=== PATIENT | female | born 1960 | race African-American/Black ===

== ENCOUNTER 2025-01-01 15:50 | Inpatient (IN) | payer MEDICARE, MEDICAID ==
[~2025-01-01] VITALS: Ht 165.1 cm; Wt 73.6 kg
[2025-01-01] VITALS (25 sets, daily range): BP systolic 134–209; BP diastolic 70–122; PULSE 61–94; RESP 19–33; TEMP 35.6–36.6404; O2SAT 98–100
[2025-01-01] MEDS: IPRATROPIUM/ALBUTEROL 0.5-3(2.5)MG/3ML NEB HHN SCH (08:45)
[2025-01-01] MEDS: NOREPINEPHRINE 8MG/250ML PMX 250 ML IV ONE ×2 (16:15)
[2025-01-01 16:40] LABS: BASOPHILS % 0.9 % (0.0-2.0); EOSINOPHILS % 1.0 % (0.0-5.0); HEMATOCRIT. 36.3 % (36.0-48.0); HEMOGLOBIN. 11.4 g/dL (12.0-16.0); LYMPHOCYTES % 27.4 % (20.0-50.0); MEAN PLATELET VOLUME 8.4 fl (7.4-10.4); MONOCYTES % 3.5 % (2.0-8.0); NEUTROPHILS % 67.2 % (40.0-76.0); PLATELET 110 x1000/uL (130-400); RED BLOOD CELL COUNT 3.81 mill/uL (4.2-5.4); RED CELL DISTRIBUTION WIDTH 17.3 % (11.6-14.6)
[2025-01-01] MEDS: PIPERACILLIN/TAZO 3.375G/50ML 50 ML IV ONE (16:42)
[2025-01-01] MEDS: SODIUM CHLORIDE 0.9% (SEPSIS BOLUS) IV ONE (16:43)
[2025-01-01 16:54] LABS: UREA NITROGEN BLOOD 18 mg/dL (9-23)
[2025-01-01 16:56] LABS: ASPARTATE AMINOTRANSFERASE 72 IU/L (<34); BILIRUBIN DIRECT < 0.1 mg/dL (<=3.0); BILIRUBIN TOTAL < 0.2 mg/dL (0.1-1.0); PROTEIN TOTAL 5.6 g/dL (6.0-8.3)
[2025-01-01 16:58] LABS: BG BASE EXCESS -6.2 mmol/L (-2.0-3.0); BG CARBOXYHEMOGLOBIN 0.9 % (0.5-1.5); BG DEOXYHEMOGLOBIN 0.4 % (0.0-5.0); BG FRACTION INSPIRED OXYGEN 100; BG HCO3 ACT 18.5 mmol/L (21.0-28.0); BG METHEMOGLOBIN 0.3 % (0.5-1.5); BG OXYGEN SATURATION 99.6 % (94.0-98.0); BG OXYHEMOGLOBIN 98.4 % (94.0-98.0); BG PCO2 33.8 mmHg (32.0-45.0); BG PEEP (cmH2O) 5.0 cmH2O; BG PH 7.357 (7.350-7.450); BG PO2 455.8 mmHg (83.0-108.0); BG SAMPLE SITE RIGHT BRACHIAL; BG TIDAL VOLUME(mL) 500.0 mL; BG TOTAL HEMOGLOBIN 11.0 g/dL (12.0-16.0); BG VENT MODE VENT - AC; BG VENT RATE 20.0 set
[2025-01-01 16:58] LABS: INR 1.2
[2025-01-01 17:05] LABS: TROPONIN I HIGH SENSITIVITY 74 ng/L (3.0-34)
[2025-01-01 17:06] LABS: CREATININE 5.2 mg/dL (0.6-1.0)
[2025-01-01] MEDS: VANCOMYCIN 1G PREMIX 200 ML IV ONE (17:20)
[2025-01-01 18:11] LABS: INFLUENZA TYPE A Presumptive Negative (Pres. Neg.)
[2025-01-01 18:12] LABS: INFLUENZA TYPE B Presumptive Negative (Pres. Neg.); RESPIRATORY SYNCYTIAL VIRUS Not Detected (Not Detectd)
[2025-01-01 18:14] LABS: CLARITY URINE TURBID (CLEAR); COLOR URINE YELLOW (YELLOW); PH URINE 7.0 (4.5-8.0); SPECIFIC GRAVITY URINE 1.016 (1.005-1.030)
[2025-01-01 18:15] LABS: GLUCOSE URINE 1+ (NEGATIVE); KETONES URINE NEGATIVE (NEGATIVE); LEUKOCYTE ESTERASE URINE 3+ (NEGATIVE); NITRITE URINE NEGATIVE (NEGATIVE); OCCULT BLOOD URINE 3+ (NEGATIVE); PROTEIN URINE 4+ (NEGATIVE); UROBILINOGEN URINE 0.2 E.U./dL (0.2-1.0)
[2025-01-01] MEDS: ATROPINE SULFATE 1MG/ML VIAL IV ONE (18:15)
[2025-01-01 18:21] LABS: BACTERIA URINE 3+; RBC URINE 15-25 /hpf (0-2); SQUAMOUS EPITHELIAL CELL URINE FEW /lpf (RARE/1+); WBC URINE 25-50 /hpf (0-2)
[2025-01-01 18:26] LABS: *AMPHETAMINES SCREEN URINE NEGATIVE (NEGATIVE)
[2025-01-01 18:27] LABS: *BARBITURATES SCREEN URINE NEGATIVE (NEGATIVE); *BENZODIAZEPINES SCREEN URINE NEGATIVE (NEGATIVE); *COCAINE SCREEN URINE NEGATIVE (NEGATIVE); CANNABINOID URINE SCREEN NEGATIVE (NEGATIVE); ECSTASY MDMA SCREEN URINE NEGATIVE (NEGATIVE); METHADONE URINE SCREEN NEGATIVE (NEGATIVE); OPIATES URINE SCREEN NEGATIVE (NEGATIVE); PHENCYCLIDINE URINE SCREEN NEGATIVE (NEGATIVE)
[2025-01-01] MEDS: PANTOPRAZOLE SODIUM 40 MG/VIAL IV SCH (20:00)
[2025-01-01] MEDS ORDERED: IOHEXOL-350 100 ML BOTTLE ONE (20:15)
[2025-01-01] MEDS ORDERED: ONDANSETRON HCL 4MG/2ML INJ IV PRN (20:15)
[2025-01-01] MEDS ORDERED: ACETAMINOPHEN 325MG TABLET PO PRN (20:15)
[2025-01-01] MEDS ORDERED: GUAIFENESIN 200MG/10ML SUGAR FREE UDC PO PRN (20:15)
[2025-01-01] MEDS ORDERED: DIPHENHYDRAMINE 50MG/ML VIAL IV PRN (20:15)
[2025-01-01] MEDS ORDERED: IPRATROPIUM/ALBUTEROL 0.5-3(2.5)MG/3ML NEB HHN PRN (20:15)
[2025-01-01] MEDS ORDERED: DOCUSATE SODIUM 100MG CAPSULE PO PRN (20:15)
[2025-01-01] MEDS ORDERED: MIDAZOLAM 100MG/100ML PMX 100 ML IV PRN (20:15)
[2025-01-01] MEDS ORDERED: MAGNESIUM/ALUMINUM HYDROXIDE/SIMETHICONE 30ML UDC PO PRN (20:15)
[2025-01-01] MEDS: SODIUM CHLORIDE 0.9% 500 ML IV ONE (21:00)
[2025-01-01] MEDS ORDERED: DEXTROSE 50% WATER 50ML SYRINGE IV PRN (21:00)
[2025-01-01] MEDS ORDERED: CARV25TA47 PO (21:02)
[2025-01-01] MEDS ORDERED: CYCL10TA21 PO (21:02)
[2025-01-01] MEDS ORDERED: GABA-529 MT (21:02)
[2025-01-01] MEDS ORDERED: CLON0.3T PO (21:02)
[2025-01-01] MEDS ORDERED: AMLO10TA80 MT (21:02)
[2025-01-01] MEDS: HYDRALAZINE 20MG/ML VIAL IV PRN (21:05)
[2025-01-01] MEDS: MIDAZOLAM 100MG/100ML PMX 100 ML IV PRN (21:05)
[2025-01-01] MEDS: AZITHROMYCIN 500MG/250ML 250 ML IV SCH (21:08)
[2025-01-01] MEDS: BLOOD SUGAR DIAGNOSTIC STRIP TEST SCH (21:40)
[2025-01-01] MEDS: AMLODIPINE 10MG TABLET PO SCH (21:44)
[2025-01-01] MEDS: CARVEDILOL 12.5MG TABLET PO SCH (21:44)
[2025-01-01] MEDS: METHYLPREDNISOLONE SOD SUCC 40MG/ML (ACT-O-VIAL) IV SCH (21:45)
[2025-01-01] MEDS: INSULIN LISPRO 100 UNITS/ML SUBCUT SCH (21:48)
[2025-01-01] MEDS: CLONIDINE 0.3MG TABLET PO SCH (22:00)
[2025-01-01] MEDS: DOXYCYCLINE 100MG/100ML 100 ML IV SCH (22:00)
[2025-01-02] VITALS (108 sets, daily range): BP systolic 119–171; BP diastolic 66–98; PULSE 67–90; RESP 16–25; TEMP 35.5–36.2; O2SAT 94–100
[2025-01-02] MEDS: CLONIDINE 0.1MG TABLET PO PRN (00:42)
[2025-01-02 01:22] LABS: CREATINE KINASE MB FRACTION 5.0 ng/mL (0.5-3.6)
[2025-01-02 01:25] LABS: TROPONIN I HIGH SENSITIVITY 870 ng/L (3.0-34)
[2025-01-02] MEDS ORDERED: CLONIDINE 0.1MG TABLET PO PRN (02:30)
[2025-01-02] MEDS: LORAZEPAM 2MG/ML UD SYRINGE IV PRN (03:10)
[2025-01-02] MEDS: PIPERACILLIN/TAZOBACTAM 3.375 G in DEXTROSE 5% WATER 50 ML IV SCH (05:48)
[2025-01-02 06:15] LABS: CREATINE KINASE MB FRACTION 4.4 ng/mL (0.5-3.6)
[2025-01-02 06:17] LABS: TRIGLYCERIDE 51.0 mg/dL (0-150); UREA NITROGEN BLOOD 23.0 mg/dL (9-23)
[2025-01-02 06:18] LABS: LDL CHOLESTEROL 63.0 mg/dL (5-100); T4 FREE 1.08 ng/dL (0.89-1.76)
[2025-01-02 06:35] LABS: CREATININE 5.1 mg/dL (0.6-1.0)
[2025-01-02] MEDS: ASPIRIN 81MG TABLET PO SCH (08:57)
[2025-01-02] MEDS: ENOXAPARIN 30MG/0.3ML SYR SUBCUT SCH (08:58)
[2025-01-02] MEDS ORDERED: LEVETIRACETAM 1,000MG in NACL 100ML PREMIX IV SCH (09:00)
[2025-01-02 10:07] LABS: BG BASE EXCESS -0.3 mmol/L (-2.0-3.0); BG FRACTION INSPIRED OXYGEN 40; BG HCO3 ACT 21.8 mmol/L (21.0-28.0); BG PCO2 29.2 mmHg (32.0-45.0); BG PEEP (cmH2O) 5.0 cmH2O; BG PH 7.491 (7.350-7.450); BG PO2 136.1 mmHg (83.0-108.0); BG SAMPLE SITE RIGHT RADIAL; BG TIDAL VOLUME(mL) 500.0 mL; BG TOTAL HEMOGLOBIN 0.0 g/dL (12.0-16.0); BG VENT MODE VENT - AC; BG VENT RATE 16.0 set
[2025-01-02] MEDS: LEVETIRACETAM 1000MG PREMIX 100 ML IV SCH (10:15)
[2025-01-02] MEDS: VANCOMYCIN 500MG/100ML IV SCH (10:59)
[2025-01-02 11:53] LABS: UREA NITROGEN BLOOD 26 mg/dL (9-23)
[2025-01-02 11:55] LABS: PHOSPHORUS 4.3 mg/dL (2.5-4.9)
[2025-01-02 12:17] LABS: CREATININE 5.5 mg/dL (0.6-1.0)
[2025-01-02 13:51] LABS: TROPONIN I HIGH SENSITIVITY 734 ng/L (3.0-34)
[2025-01-02 14:34] LABS: HEPATITIS A AB IGM NEGATIVE (Negative); HEPATITIS B CORE AB IGM NEGATIVE (Negative)
[2025-01-02 14:35] LABS: HEPATITIS C AB NON REACTIVE (Neg) (Negative)
[2025-01-02] MEDS: PROPOFOL 10MG/ML 100ML 100 ML IV PRN (15:36)
[2025-01-02] MEDS ORDERED: DEXTROSE 50% WATER 50ML SYRINGE IV PRN (15:45)
[2025-01-02] MEDS: BLOOD SUGAR DIAGNOSTIC STRIP TEST SCH (17:31)
[2025-01-02] MEDS: DOXYCYCLINE 100MG/100ML 100 ML IV SCH (17:32)
[2025-01-02] MEDS: INSULIN LISPRO 100 UNITS/ML SUBCUT SCH (17:33)
[2025-01-02 18:36] LABS: CREATINE KINASE MB FRACTION 1.9 ng/mL (0.5-3.6)
[2025-01-02 18:45] LABS: TROPONIN I HIGH SENSITIVITY 373 ng/L (3.0-34)
[2025-01-02] MEDS: PIPERACILLIN/TAZO 3.375G/50ML IV SCH (21:30)
[2025-01-02] MEDS: ATORVASTATIN CALCIUM 40MG TABLET PO SCH (21:31)
[2025-01-03] VITALS (94 sets, daily range): BP systolic 104–210; BP diastolic 57–179; PULSE 50–93; RESP 12–23; TEMP 36.9; O2SAT 93–100
[2025-01-03 06:07] LABS: HEMATOCRIT. 38.8 % (36.0-48.0); HEMOGLOBIN. 12.5 g/dL (12.0-16.0); MEAN PLATELET VOLUME 9.0 fl (7.4-10.4); PLATELET 172 x1000/uL (130-400); RED BLOOD CELL COUNT 4.30 mill/uL (4.2-5.4); RED CELL DISTRIBUTION WIDTH 17.0 % (11.6-14.6)
[2025-01-03 06:13] LABS: TROPONIN I HIGH SENSITIVITY 248 ng/L (3.0-34)
[2025-01-03 06:15] LABS: CREATINE KINASE MB FRACTION < 0.5 ng/mL (0.5-3.6)
[2025-01-03 06:18] LABS: TRIGLYCERIDE 111 mg/dL (0-150); UREA NITROGEN BLOOD 27 mg/dL (9-23)
[2025-01-03 06:20] LABS: PHOSPHORUS 5.2 mg/dL (2.5-4.9)
[2025-01-03 06:25] LABS: CREATININE 6.0 mg/dL (0.6-1.0)
[2025-01-03] MEDS: PANTOPRAZOLE SODIUM 40 MG/VIAL IV SCH (09:00)
[2025-01-03] MEDS: MIDAZOLAM 100MG/100ML PMX 100 ML IV PRN (11:48)
[2025-01-03 12:50] LABS: BAND% 6.0 % (1.0-6.0); LYMPHOCYTES % MANUAL 4.0 % (20.0-60.0); MONOCYTES % MANUAL 4.0 % (2.0-8.0); NEUTROPHILS % MANUAL 86.0 % (45.0-75.0); PLATELET ESTIMATE NORMAL
[2025-01-03 13:59] LABS: BG BASE EXCESS 0.9 mmol/L (-2.0-3.0); BG CARBOXYHEMOGLOBIN 1.2 % (0.5-1.5); BG DEOXYHEMOGLOBIN 1.6 % (0.0-5.0); BG FRACTION INSPIRED OXYGEN 40; BG HCO3 ACT 21.5 mmol/L (21.0-28.0); BG METHEMOGLOBIN 0.3 % (0.5-1.5); BG OXYGEN SATURATION 98.4 % (94.0-98.0); BG OXYHEMOGLOBIN 96.9 % (94.0-98.0); BG PCO2 23.9 mmHg (32.0-45.0); BG PEEP (cmH2O) 5.0 cmH2O; BG PH 7.571 (7.350-7.450); BG PO2 113.5 mmHg (83.0-108.0); BG SAMPLE SITE RIGHT RADIAL; BG TIDAL VOLUME(mL) 500.0 mL; BG TOTAL HEMOGLOBIN 12.6 g/dL (12.0-16.0); BG VENT MODE VENT - AC; BG VENT RATE 20.0 set
[2025-01-04] VITALS (105 sets, daily range): BP systolic 109–173; BP diastolic 29–121; PULSE 50–82; RESP 11–22; TEMP 36.1–36.7; O2SAT 93–100
[2025-01-04 05:40] LABS: TRIGLYCERIDE 92 mg/dL (0-150); UREA NITROGEN BLOOD 40 mg/dL (9-23)
[2025-01-04 05:42] LABS: PHOSPHORUS 6.3 mg/dL (2.5-4.9)
[2025-01-04 05:48] LABS: CREATININE 6.8 mg/dL (0.6-1.0)
[2025-01-04 05:57] LABS: PLATELET 148 x1000/uL (130-400); RED BLOOD CELL COUNT 4.02 mill/uL (4.2-5.4); RED CELL DISTRIBUTION WIDTH 17.2 % (11.6-14.6)
[2025-01-04] MEDS: PROPOFOL 10MG/ML 100ML 100 ML IV PRN (08:05)
[2025-01-04 11:46] LABS: BG BASE EXCESS 5.7 mmol/L (-2.0-3.0); BG CARBOXYHEMOGLOBIN 1.4 % (0.5-1.5); BG DEOXYHEMOGLOBIN 2.7 % (0.0-5.0); BG FRACTION INSPIRED OXYGEN 40; BG HCO3 ACT 28.6 mmol/L (21.0-28.0); BG METHEMOGLOBIN 0.3 % (0.5-1.5); BG OXYGEN SATURATION 97.3 % (94.0-98.0); BG OXYHEMOGLOBIN 95.6 % (94.0-98.0); BG PCO2 35.8 mmHg (32.0-45.0); BG PEEP (cmH2O) 5.0 cmH2O; BG PH 7.520 (7.350-7.450); BG PO2 95.5 mmHg (83.0-108.0); BG SAMPLE SITE RIGHT RADIAL; BG TIDAL VOLUME(mL) 450.0 mL; BG TOTAL HEMOGLOBIN 13.8 g/dL (12.0-16.0); BG VENT MODE VENT - AC; BG VENT RATE 16.0 set
[2025-01-04] MEDS ORDERED: PROPOFOL 10MG/ML 100ML 100 ML IV PRN (13:00)
[2025-01-04] MEDS: VANCOMYCIN 500MG/100ML IV SCH (21:15)
[2025-01-05] VITALS (98 sets, daily range): BP systolic 100–155; BP diastolic 49–114; PULSE 64–87; RESP 12–23; TEMP 36.5–36.8; O2SAT 96–100
[2025-01-05 05:35] LABS: PLATELET 147 x1000/uL (130-400); RED BLOOD CELL COUNT 3.88 mill/uL (4.2-5.4); RED CELL DISTRIBUTION WIDTH 16.8 % (11.6-14.6)
[2025-01-05] MEDS: SEVELAMER CARBONATE 800 MG TABLET PO SCH (06:19)
[2025-01-05 08:33] LABS: TRIGLYCERIDE 335 mg/dL (0-150); UREA NITROGEN BLOOD 42 mg/dL (9-23)
[2025-01-05 08:34] LABS: CREATININE 5.5 mg/dL (0.6-1.0)
[2025-01-05 08:35] LABS: PHOSPHORUS 5.3 mg/dL (2.5-4.9)
[2025-01-05 10:17] LABS: BG BASE EXCESS 3.7 mmol/L (-2.0-3.0); BG CARBOXYHEMOGLOBIN 0.3 % (0.5-1.5); BG DEOXYHEMOGLOBIN 2.2 % (0.0-5.0); BG FRACTION INSPIRED OXYGEN 40; BG HCO3 ACT 27.0 mmol/L (21.0-28.0); BG METHEMOGLOBIN 0.3 % (0.5-1.5); BG OXYGEN SATURATION 97.8 % (94.0-98.0); BG OXYHEMOGLOBIN 97.2 % (94.0-98.0); BG PCO2 36.0 mmHg (32.0-45.0); BG PEEP (cmH2O) 5.0 cmH2O; BG PH 7.493 (7.350-7.450); BG PO2 109.1 mmHg (83.0-108.0); BG SAMPLE SITE RIGHT RADIAL; BG TIDAL VOLUME(mL) 450.0 mL; BG TOTAL HEMOGLOBIN 11.8 g/dL (12.0-16.0); BG VENT MODE VENT - AC; BG VENT RATE 16.0 set
[2025-01-06] VITALS (102 sets, daily range): BP systolic 116–196; BP diastolic 53–98; PULSE 67–93; RESP 9–25; TEMP 36.3–37.2; O2SAT 94–100
[2025-01-06 05:13] LABS: PLATELET 128 x1000/uL (130-400); RED BLOOD CELL COUNT 3.72 mill/uL (4.2-5.4); RED CELL DISTRIBUTION WIDTH 16.4 % (11.6-14.6)
[2025-01-06 05:29] LABS: UREA NITROGEN BLOOD 43 mg/dL (9-23)
[2025-01-06 05:31] LABS: PHOSPHORUS 5.6 mg/dL (2.5-4.9)
[2025-01-06 05:51] LABS: CREATININE 6.2 mg/dL (0.6-1.0)
[2025-01-06] MEDS: KCL 20MEQ/100ML PREMIX 100 ML IV NR (11:33)
[2025-01-06] MEDS: MENTHOL/LANOLIN/CALAMINE/ZN OX OINT 71GM TOP SCH (14:06)
[2025-01-06] MEDS ORDERED: POTASSIUM CHLORIDE 20MEQ TABLET SR PO ONE (19:00)
[2025-01-06] MEDS: IPRATROPIUM/ALBUTEROL 0.5-3(2.5)MG/3ML NEB HHN SCH (21:19)
[2025-01-07] VITALS (93 sets, daily range): BP systolic 119–160; BP diastolic 52–84; PULSE 65–84; RESP 8–21; TEMP 36.6–37.5; O2SAT 95–100
[2025-01-07] MEDS: LORAZEPAM 2MG/ML UD SYRINGE IV PRN (02:49)
[2025-01-07 06:16] LABS: PLATELET 118 x1000/uL (130-400); RED BLOOD CELL COUNT 3.52 mill/uL (4.2-5.4); RED CELL DISTRIBUTION WIDTH 16.6 % (11.6-14.6)
[2025-01-07 06:29] LABS: UREA NITROGEN BLOOD 37 mg/dL (9-23)
[2025-01-07 06:31] LABS: PHOSPHORUS 4.6 mg/dL (2.5-4.9)
[2025-01-07 07:33] LABS: CREATININE 5.4 mg/dL (0.6-1.0)
[2025-01-07] MEDS: ACETAMINOPHEN 325MG TABLET PO PRN (14:10)
[2025-01-08] VITALS (50 sets, daily range): BP systolic 84; BP diastolic 47; PULSE 71–105; RESP 11–34; TEMP 36.8–37.7; O2SAT 52–100
[2025-01-08 00:55] LABS: BG BASE EXCESS 0.1 mmol/L (-2.0-3.0); BG CARBOXYHEMOGLOBIN 1.3 % (0.5-1.5); BG DEOXYHEMOGLOBIN 3.9 % (0.0-5.0); BG FRACTION INSPIRED OXYGEN 40; BG HCO3 ACT 24.3 mmol/L (21.0-28.0); BG METHEMOGLOBIN 0.3 % (0.5-1.5); BG OXYGEN SATURATION 96.0 % (94.0-98.0); BG OXYHEMOGLOBIN 94.5 % (94.0-98.0); BG PCO2 38.1 mmHg (32.0-45.0); BG PEEP (cmH2O) 5.0 cmH2O; BG PH 7.422 (7.350-7.450); BG PO2 86.4 mmHg (83.0-108.0); BG SAMPLE SITE ALINE; BG TIDAL VOLUME(mL) 450.0 mL; BG TOTAL HEMOGLOBIN 14.0 g/dL (12.0-16.0); BG VENT MODE VENT - AC; BG VENT RATE 14.0 set
[2025-01-08 01:11] LABS: HEMATOCRIT. 29.5 % (36.0-48.0); HEMOGLOBIN. 9.7 g/dL (12.0-16.0); MEAN PLATELET VOLUME 10.0 fl (7.4-10.4); PLATELET 142 x1000/uL (130-400); RED BLOOD CELL COUNT 3.36 mill/uL (4.2-5.4); RED CELL DISTRIBUTION WIDTH 16.4 % (11.6-14.6)
[2025-01-08 01:20] LABS: UREA NITROGEN BLOOD 46 mg/dL (9-23)
[2025-01-08 01:21] LABS: ASPARTATE AMINOTRANSFERASE 35 IU/L (<34); BILIRUBIN DIRECT < 0.1 mg/dL (<=3.0); CREATINE KINASE MB FRACTION < 0.5 ng/mL (0.5-3.6)
[2025-01-08 01:22] LABS: BILIRUBIN TOTAL < 0.2 mg/dL (0.1-1.0); PHOSPHORUS 5.5 mg/dL (2.5-4.9); PROTEIN TOTAL 5.2 g/dL (6.0-8.3)
[2025-01-08 01:24] LABS: INR 1.0
[2025-01-08 01:27] LABS: CREATININE 6.0 mg/dL (0.6-1.0)
[2025-01-08 01:56] LABS: TROPONIN I HIGH SENSITIVITY 64 ng/L (3.0-34)
[2025-01-08 05:06] LABS: CLARITY URINE CLOUDY (CLEAR); COLOR URINE YELLOW (YELLOW); GLUCOSE URINE 2+ (NEGATIVE); KETONES URINE NEGATIVE (NEGATIVE); LEUKOCYTE ESTERASE URINE 3+ (NEGATIVE); NITRITE URINE NEGATIVE (NEGATIVE); OCCULT BLOOD URINE 3+ (NEGATIVE); PH URINE 8.0 (4.5-8.0); PROTEIN URINE 2+ (NEGATIVE); SPECIFIC GRAVITY URINE 1.014 (1.005-1.030); UROBILINOGEN URINE 0.2 E.U./dL (0.2-1.0)
[2025-01-08 07:35] LABS: HEMATOCRIT. 33.3 % (36.0-48.0); HEMOGLOBIN. 10.8 g/dL (12.0-16.0); MEAN PLATELET VOLUME 9.6 fl (7.4-10.4); PLATELET 166 x1000/uL (130-400); RED BLOOD CELL COUNT 3.80 mill/uL (4.2-5.4); RED CELL DISTRIBUTION WIDTH 16.4 % (11.6-14.6)
[2025-01-08 07:45] LABS: CREATINE KINASE MB FRACTION < 0.5 ng/mL (0.5-3.6)
[2025-01-08 07:46] LABS: UREA NITROGEN BLOOD 52 mg/dL (9-23)
[2025-01-08 07:46] LABS: SQUAMOUS EPITHELIAL CELL URINE 1+ /lpf (RARE/1+); WBC URINE TNTC /hpf (0-2)
[2025-01-08 07:47] LABS: ASPARTATE AMINOTRANSFERASE 34 IU/L (<34); BILIRUBIN DIRECT < 0.1 mg/dL (<=3.0); PHOSPHORUS 5.5 mg/dL (2.5-4.9)
[2025-01-08 07:48] LABS: BACTERIA URINE 1+; RBC URINE 15-25 /hpf (0-2); YEAST URINE 1+
[2025-01-08 07:48] LABS: BILIRUBIN TOTAL 0.2 mg/dL (0.1-1.0); PROTEIN TOTAL 6.3 g/dL (6.0-8.3)
[2025-01-08 08:11] LABS: INR 1.0
[2025-01-08 08:17] LABS: CREATININE 6.5 mg/dL (0.6-1.0); TROPONIN I HIGH SENSITIVITY 84 ng/L (3.0-34)
[2025-01-08 10:41] LABS: BG BASE EXCESS 2.7 mmol/L (-2.0-3.0); BG CARBOXYHEMOGLOBIN 0.5 % (0.5-1.5); BG DEOXYHEMOGLOBIN 2.2 % (0.0-5.0); BG FRACTION INSPIRED OXYGEN 35; BG HCO3 ACT 25.8 mmol/L (21.0-28.0); BG METHEMOGLOBIN 0.3 % (0.5-1.5); BG OXYGEN SATURATION 97.8 % (94.0-98.0); BG OXYHEMOGLOBIN 97.0 % (94.0-98.0); BG PCO2 34.3 mmHg (32.0-45.0); BG PEEP (cmH2O) 5.0 cmH2O; BG PH 7.494 (7.350-7.450); BG PO2 105.0 mmHg (83.0-108.0); BG SAMPLE SITE ALINE; BG TIDAL VOLUME(mL) 450.0 mL; BG TOTAL HEMOGLOBIN 10.8 g/dL (12.0-16.0); BG VENT MODE VENT - AC; BG VENT RATE 14.0 set
[2025-01-08] MEDS: LORAZEPAM 2MG/ML UD SYRINGE IV PRN ×2 (12:52→16:26)
[2025-01-08] MEDS: GLYCOPYRROLATE 0.2MG/ML VIAL 5ML IV SCH (12:53)
[2025-01-08] MEDS: ATROPINE SULFATE 1% OPHTH 2ML SL SCH (12:53)
[2025-01-08 13:04] LABS: HEMATOCRIT. 29.4 % (36.0-48.0); HEMOGLOBIN. 10.0 g/dL (12.0-16.0); MEAN PLATELET VOLUME 9.7 fl (7.4-10.4); PLATELET 166 x1000/uL (130-400); RED BLOOD CELL COUNT 3.41 mill/uL (4.2-5.4); RED CELL DISTRIBUTION WIDTH 15.9 % (11.6-14.6)
[2025-01-08 13:11] LABS: INR 1.0
[2025-01-08 13:15] LABS: CREATINE KINASE MB FRACTION 0.6 ng/mL (0.5-3.6)
[2025-01-08 13:16] LABS: UREA NITROGEN BLOOD 54 mg/dL (9-23)
[2025-01-08 13:18] LABS: ASPARTATE AMINOTRANSFERASE 29 IU/L (<34); BILIRUBIN DIRECT 0.1 mg/dL (<=3.0); BILIRUBIN TOTAL 0.2 mg/dL (0.1-1.0); PHOSPHORUS 5.9 mg/dL (2.5-4.9); PROTEIN TOTAL 5.5 g/dL (6.0-8.3)
[2025-01-08 13:23] LABS: CREATININE 6.5 mg/dL (0.6-1.0)
[2025-01-08 13:25] LABS: TROPONIN I HIGH SENSITIVITY 93 ng/L (3.0-34)
[2025-01-08 13:42] LABS: CLARITY URINE CLEAR (CLEAR); COLOR URINE YELLOW (YELLOW); GLUCOSE URINE 2+ (NEGATIVE); KETONES URINE NEGATIVE (NEGATIVE); LEUKOCYTE ESTERASE URINE TRACE (NEGATIVE); NITRITE URINE NEGATIVE (NEGATIVE); OCCULT BLOOD URINE TRACE (NEGATIVE); PH URINE 8.0 (4.5-8.0); PROTEIN URINE 2+ (NEGATIVE); SPECIFIC GRAVITY URINE 1.015 (1.005-1.030); UROBILINOGEN URINE 0.2 E.U./dL (0.2-1.0)
[2025-01-08 14:21] LABS: BACTERIA URINE TRACE; RBC URINE 0-2 /hpf (0-2); SQUAMOUS EPITHELIAL CELL URINE RARE /lpf (RARE/1+); YEAST URINE NONE SEEN
[2025-01-08] MEDS ORDERED: MORPHINE SULFATE 2 MG/ML INJ (NOT FOR IM USE) IV PRN (14:30)
[2025-01-08] MEDS: MORPHINE SULFATE 250 MG in DEXT 5% WATER 225 ML IV PRN (15:33)
[2025-01-08] MEDS: HEPARIN 10,000 UNITS/ML VIAL IV NR (16:15)
[2025-01-08] MEDS: MIDAZOLAM HCL 2 MG/2 ML VIAL IV NR (16:49)
[2025-01-08 17:22] LABS: BAND% 3.0 % (1.0-6.0); EOSINOPHILS % MANUAL 1.0 % (0.0-5.0); LYMPHOCYTES % MANUAL 1.0 % (20.0-60.0); MONOCYTES % MANUAL 4.0 % (2.0-8.0); NEUTROPHILS % MANUAL 91.0 % (45.0-75.0); PLATELET ESTIMATE NORMAL
[2025-01-08 17:24] LABS: EOSINOPHILS % MANUAL 3.0 % (0.0-5.0); LYMPHOCYTES % MANUAL 6.0 % (20.0-60.0); MONOCYTES % MANUAL 7.0 % (2.0-8.0); NEUTROPHILS % MANUAL 84.0 % (45.0-75.0); PLATELET ESTIMATE NORMAL
[2025-01-08 17:27] LABS: EOSINOPHILS % MANUAL 2.0 % (0.0-5.0); LYMPHOCYTES % MANUAL 5.0 % (20.0-60.0); MONOCYTES % MANUAL 5.0 % (2.0-8.0); NEUTROPHILS % MANUAL 88.0 % (45.0-75.0); PLATELET ESTIMATE NORMAL
== END 2025-01-08 19:00 | DRG 207 ==
LOC: ER 15:50 → EDBD 17:45 → MICUSO 17:45 → EDBEDREQTM 17:55 → EDBEDREQ 17:55
PROVIDERS: ADMIT Internal Medicine; ATTEND Internal Medicine
PROC: 5A1955Z Respiratory Ventilation, Greater than 96 Consecutive Hours (ICD-10-PCS; principal; 2025-01-01)
PROC: 0BH17EZ Insertion of Endotracheal Airway into Trachea, Via Natural or Artificial Opening (ICD-10-PCS; 2025-01-01)
PROC: 5A12012 Performance of Cardiac Output, Single, Manual (ICD-10-PCS; 2025-01-01)
PROC: 4A00X4Z Measurement of Central Nervous Electrical Activity, External Approach (ICD-10-PCS; 2025-01-03)
PROC: 5A1D70Z Performance of Urinary Filtration, Intermittent, Less than 6 Hours Per Day (ICD-10-PCS; 2025-01-04)
PROC: 5A1D70Z Performance of Urinary Filtration, Intermittent, Less than 6 Hours Per Day (ICD-10-PCS; 2025-01-06)
PROC: 03HY32Z Insertion of Monitoring Device into Upper Artery, Percutaneous Approach (ICD-10-PCS; 2025-01-07)
PROC: 30233N1 Transfusion of Nonautologous Red Blood Cells into Peripheral Vein, Percutaneous Approach (ICD-10-PCS; 2025-01-08)
DX: J96.01 Acute respiratory failure with hypoxia (principal); G92.8 Other toxic encephalopathy; I21.A1 Myocardial infarction type 2; J69.0 Pneumonitis due to inhalation of food and vomit; N18.6 End stage renal disease; I50.23 Acute on chronic systolic (congestive) heart failure; I46.9 Cardiac arrest, cause unspecified; I13.2 Hypertensive heart and chronic kidney disease with heart failure and with stage 5 chronic kidney disease, or end stage renal disease; G93.1 Anoxic brain damage, not elsewhere classified; E87.20 Acidosis, unspecified; Z51.5 Encounter for palliative care; D63.1 Anemia in chronic kidney disease; N39.0 Urinary tract infection, site not specified; D69.6 Thrombocytopenia, unspecified; Z99.2 Dependence on renal dialysis; B96.20 Unspecified Escherichia coli [E. coli] as the cause of diseases classified elsewhere; B96.89 Other specified bacterial agents as the cause of diseases classified elsewhere; E11.22 Type 2 diabetes mellitus with diabetic chronic kidney disease; R56.9 Unspecified convulsions; I08.1 Rheumatic disorders of both mitral and tricuspid valves; E87.3 Alkalosis; I16.0 Hypertensive urgency; Z20.822 Contact with and (suspected) exposure to COVID-19; Z66 Do not resuscitate; E11.65 Type 2 diabetes mellitus with hyperglycemia; R74.01 Elevation of levels of liver transaminase levels; L89.156 Pressure-induced deep tissue damage of sacral region; E11.51 Type 2 diabetes mellitus with diabetic peripheral angiopathy without gangrene; E78.00 Pure hypercholesterolemia, unspecified; G25.3 Myoclonus; F17.210 Nicotine dependence, cigarettes, uncomplicated; Z55.6 Problems related to health literacy; Z83.3 Family history of diabetes mellitus; Z86.73 Personal history of transient ischemic attack (TIA), and cerebral infarction without residual deficits; Z90.710 Acquired absence of both cervix and uterus; Z82.49 Family history of ischemic heart disease and other diseases of the circulatory system
CPT/HCPCS: 31500; 31720; 36415; 36600; 71045; 71275; 74174; 76705; 80048; 80053; 80061; 80076; 80202; 80305; 80320; 81003; 82140; 82150; 82248; 82375; 82550; 82553; 82805; 82962; 83036; 83605; 83735; 83880; 84100; 84145; 84439; 84443; 84478; 84484; 85025; 85027; 85379; 86705; 86709; 86850; 86900; 86920; 87015; 87045; 87070; 87077; 87186; 87340; 87420; 87426; 87427; 87449; 87804; 90935; 92950; 93005; 93306; 93880; 93970; 94002; 94003; 94070; 94640; 94664; 95816; 98960; 99291; 99292; J0360; J0456; J1644; J1650; J1815; J1953; J2060; J2250; J2470; J2543; J2704; J2919; J3373; J3480; J3490; J7030; J7060; P9016; Q9967; A4217; G0480